=== PATIENT | female | born 1980 | race Caucasian/White ===

== ENCOUNTER 2019-05-08 18:04 | Emergency (ER) | payer SELFPAY ==
[~2019-05-08] VITALS: Ht 165.1 cm; Wt 66.7 kg
[2019-05-08 18:14] VITALS: Ht 165.1 cm; Wt 66.7 kg
[2019-05-08 19:53] LABS: BASOPHIL % 0.4 % (0-2); PLATELET COUNT 323 x10^3mcL (130-400)
[2019-05-08 20:23] LABS: SODIUM SERUM 131 mmol/L (136-145)
[2019-05-08 20:24] LABS: ALKALINE PHOSPHATASE 81 U/L (46-116); ALT/SGPT 49 U/L (14-59); AST/SGOT 15 U/L (15-37); BILIRUBIN TOTAL 0.5 mg/dL (0.20-1.00); CALCIUM 8.5 mg/dL (8.5-10.1); CARBON DIOXIDE 22.9 mmol/L (21-32); CHLORIDE SERUM 96 mmol/L (98-107); CREATININE SERUM 0.7 mg/dL (0.6-1.0); GFR1 > 60 mL/min; GLUCOSE SERUM 117 mg/dL (74-106); TOTAL PROTEIN, SERUM 7.6 g/dL (6.4-8.2)
[2019-05-08 20:25] LABS: LIPASE 58 IU/L (73-393)
[2019-05-08 20:26] LABS: POTASSIUM SERUM 2.8 mmol/L (3.5-5.1)
[2019-05-08 20:30] LABS: microscopic required? YES; urine erythrocyte TRACE (NEGATIVE)
[2019-05-09 00:16] VITALS: BP 119/76
== END 2019-05-09 00:16 | disposition home or self-care (01) ==
LOC: ED 18:04
PROVIDERS: Emergency Medicine
DX: N10 Acute pyelonephritis (principal)
CPT/HCPCS: 87804; J0696; J1885; J2405; J7030; J7060; Q0092